=== PATIENT | female | born 1940 | race Two or more races ===

== ENCOUNTER 2017-10-08 03:24 | Inpatient (IN) | payer MEDICARE, OTHER ==
[~2017-10-08] VITALS: Ht 162.6 cm; Wt 60.8 kg
[2017-10-08] MEDS ORDERED: LEVO100T9 PO (04:38)
[2017-10-08] MEDS ORDERED: LORA-259 PO (04:38)
[2017-10-08] MEDS ORDERED: MEMA10TA PO (04:39)
--- NOTE | 2017-10-08 04:39 | NUR ---
Patient refused skin assessment and photo taken, asked to take her photo, she stated, " No "
[2017-10-08] MEDS ORDERED: POLY255P2 PO (04:41)
--- NOTE | 2017-10-08 04:41 | NUR ---
0440 AM, PATIENT ADMITTED DIRECTLY FROM [facility], ER ACCOMPANIED BY 2 MALE PARAMEDICS. PATIENT CAME TO THE UNIT AT 0440 AM. ADMITTED ON 5150 HOLD FOR GD. SHE WAS PLACED COMFORTABLY IN BED. PATIENT IS AWAKE, ALERT, KNOWS HER NAME AND TIME, NOT THE PLACE. PATIENT IS CONFUSED, UNCOOPERATIVE, ANSWER QUESTIONS SELECTIVELY. RESPIRATION EVEN, BREATHING PATTERN NON-LABORED, SHOWS NO S/S OF PAIN OR DISCOMFORT. VERIFIED ALLERGY WITH PCN, HER EYES GET SWOLLEN WHEN SHE TAKES PENICILLIN. REUSED PHOTO TAKEN AND RERUSED SKIN ASSESSMENT. SHE SAID THAT SHE HAD HER FLU SHOT 2 DAYS AGO. BELONGINGS WERE INVENTORIED AND CHECKED FOR CONTRABAND, VALUABLES PUT TO SAFE. PATIENT IS UNDER THE PSYCHIATRIC CARE OF DR. CHÁVEZ AND UNDER THE MEDICAL CARE OF DR. YBARRA. WILL CALL IN THE MORNING FOR MED RECON. WILL NOTIGY FAMILY OF HER ADMISSION TO THE UNIT. BED LOCKED AND PLACED ON LOWER POSITION. WILL CONTINUE TO MONITOR Q 15 MINS. TO MAINTAIN SAFETY
--- NOTE | 2017-10-08 04:45 | NUR ---
0445; VITAL SIGNS 120/71, 98.0, 18, 74, 98% SATURATION ON ROOM AIR.
[2017-10-08] MEDS ORDERED: MAGNESIUM HYDROXIDE 30 ML UDC PO PRN (05:00)
[2017-10-08] MEDS ORDERED: ACETAMINOPHEN 325 MG TABLET PO PRN (05:00)
[2017-10-08] MEDS ORDERED: MAG HYDROX/AL HYDROX/SIMETH 30 ML UDC PO PRN (05:00)
--- NOTE | 2017-10-08 06:27 | NUR ---
JENAE YBARRA FOR MED RECON
--- NOTE | 2017-10-08 06:38 | NUR ---
Called patient's , Mr. Feroz Chauhan to notify about patient's admission to the unit, no answer, voicemail left.
[2017-10-08 08:00] VITALS: BP 121/71
[2017-10-08] MEDS: LORAZEPAM 0.5 MG TABLET PO PRN (14:17)
--- NOTE | 2017-10-08 14:18 | NUR ---
GPS RN NOTE: PT IN THE DINNING ROOM ANXIOUS AND RESTLESS ATIVAN 0.5 MG PO PRN GIVEN WILL CONTINUE MONITORING FOR SAFETY AND BEHAVIOR Q 15 MIN
--- NOTE | 2017-10-08 15:55 | NUR ---
initial Discharge Note: Patient lives at home with her [address] [facility] [address]. dynamic balancer set up worker spoke to patient's Feroz Chauhan ([phone]) and patient's son Jesus Chauhan ([phone]) both stated that patient can return home upon discharge and stated that someone in the family would be able to pick her up. dynamic balancer set up worker will help form a safe and proper discharge.
--- NOTE | 2017-10-08 15:55 | NUR ---
Patient's Feroz Chauhan ([phone]) requested to speak to the assigned psychiatrist. SW informed Dr. Lombardi.
[2017-10-08 16:00] VITALS: BP 127/82
[2017-10-08] MEDS: MEMANTINE HCL 5 MG TABLET PO SCH ×2 (16:26→16:31)
--- NOTE | 2017-10-08 17:30 | NUR ---
GPS RN NOTE: PT IN THE DINNING ROOM REFUSED SKIN ASSESSMENT NON COOPERATIVE, ANXIOUS, RESTLESS NOTED MULTIPLE SKIN TEARS ON HER LEFT ARM PT CONTINUE REFUSING TO COVER WITH SANCHEZ, WILL CONTINUE MONITORING.
[2017-10-08 19:42] VITALS: BP 116/55
[2017-10-08] MEDS: QUETIAPINE FUMARATE 25 MG TABLET PO SCH (21:49)
[2017-10-08] MEDS: DIVALPROEX SODIUM 250 MG TABLET.DR PO SCH (21:49)
[2017-10-09 06:59] LABS: BASOPHILS % (AUTO) 0.1 % (0.0-2.0); EOSINOPHILS # (AUTO) 0.1 /CMM (0.0-0.7); HEMATOCRIT 37 % (33-45); HEMOGLOBIN 12.9 g/dL (11.5-14.8); LYMPHOCYTES # (AUTO) 2.1 /CMM (0.8-4.8); LYMPHOCYTES % (AUTO) 23.5 % (20.0-44.0); MEAN CORPUSCULAR HEMOGLOBIN 32 PG (26.0-33.0); MEAN CORPUSCULAR HGB CONC 35 g/dl (31.0-36.0); MEAN CORPUSCULAR VOLUME 92 fL (82-100); MONOCYTES # (AUTO) 0.8 /CMM (0.1-1.30); MONOCYTES % (AUTO) 8.7 % (2.0-12.0); NEUTROPHILS # (AUTO) 5.9 /CMM (1.8-8.9); NEUTROPHILS % (AUTO) 66.7 % (43.0-81.0); PLATELET COUNT (AUTO) 228 /CMM (150-450); RDW COEFFICIENT OF VARIATION 14.4 (11.5-15.0); RED BLOOD CELL COUNT(AUTO) 4.01 MIL/uL (4.0-5.2); WHITE BLOOD COUNT (AUTO) 8.9 K/uL (4.3-11.0)
[2017-10-09 07:18] LABS: CHOLESTEROL 126 mg/dL (<200); HDL CHOLESTEROL 65 mg/dL (40-60); LDL 62 mg/dL (0-99); TRIGLYCERIDES 30 mg/dL (30-150)
[2017-10-09 07:21] LABS: ALANINE AMINOTRANSFERASE 31 U/L (12-78); ALKALINE PHOSPHATASE 65 U/L (46-116); ASPARTATE AMINOTRANSFERASE 42 U/L (15-37); BILIRUBIN,TOTAL 1.1 mg/dL (0.2-1.0); CALCIUM, SERUM 8.7 mg/dL (8.5-10.1); CARBON DIOXIDE 24 mmol/L (21-32); CHLORIDE 112 mmol/L (98-107); CREATININE 0.8 mg/dL (0.6-1.3); GLUCOSE 89 mg/dL (74-106); POTASSIUM 3.5 mmol/L (3.5-5.1); SODIUM SERUM 144 mmol/L (136-145); TOTAL PROTEIN, SERUM 6.3 g/dL (6.4-8.2); UREA NITROGEN, BLOOD 24 mg/dL (7-18)
[2017-10-09] MEDS: LEVOTHYROXINE SODIUM 100 MCG TABLET PO SCH (07:30)
[2017-10-09 08:00] VITALS: BP 99/69
[2017-10-09] MEDS: MEMANTINE HCL 5 MG TABLET PO SCH ×2 (09:00→16:11)
[2017-10-09] MEDS: DIVALPROEX SODIUM 250 MG TABLET.DR PO SCH ×2 (09:00→20:54)
[2017-10-09] MEDS: QUETIAPINE FUMARATE 25 MG TABLET PO SCH ×2 (09:00→21:07)
--- NOTE | 2017-10-09 09:00 | NUR ---
GPS/RN PATIENT REFUSED ALL MORNING MEDICATION X 3, EXPLAINED RISKS AND BENEFITS, WILL CONTINUE TO ENCOURAGE TO COMPLY WITH MD REGIMEN.
[2017-10-09 16:07] VITALS: BP 110/75
[2017-10-09] MEDS: DIVALPROEX SODIUM 125 MG TABLET.DR PO SCH (16:11)
[2017-10-09 20:10] VITALS: BP 128/78
[2017-10-09] MEDS: TEMAZEPAM 7.5 MG CAPSULE PO PRN (21:12)
[2017-10-10 08:00] VITALS: BP 107/77
[2017-10-10] MEDS: LEVOTHYROXINE SODIUM 100 MCG TABLET PO SCH (08:18)
[2017-10-10] MEDS: MEMANTINE HCL 5 MG TABLET PO SCH ×2 (08:18→17:12)
[2017-10-10] MEDS: DIVALPROEX SODIUM 250 MG TABLET.DR PO SCH ×2 (08:18→20:22)
[2017-10-10] MEDS: QUETIAPINE FUMARATE 25 MG TABLET PO SCH ×2 (08:18→21:21)
[2017-10-10 16:09] VITALS: BP 129/78
[2017-10-10] MEDS: DIVALPROEX SODIUM 125 MG TABLET.DR PO SCH (17:12)
[2017-10-10 19:55] VITALS: BP 118/57
[2017-10-10] MEDS: TEMAZEPAM 7.5 MG CAPSULE PO PRN (21:45)
[2017-10-11] MEDS: LORAZEPAM 0.5 MG TABLET PO PRN (02:23)
--- NOTE | 2017-10-11 02:23 | NUR ---
GPS RN NOTES: PATIENT VERY ANXIOUS, RESTLESS. VSS. ADMINISTERED ATIVAN 0.5MG PO ORDERED. WILL CONTINUE TO MONITOR [id number] FOR SAFETY AND BEHAVIOR.
--- NOTE | 2017-10-11 02:41 | NUR ---
GPS RN NOTES: SKIN BODY REASSESSMENT DONE.
[2017-10-11 08:00] VITALS: BP 107/69
[2017-10-11] MEDS: LEVOTHYROXINE SODIUM 100 MCG TABLET PO SCH (08:39)
[2017-10-11] MEDS: QUETIAPINE FUMARATE 25 MG TABLET PO SCH (09:30)
[2017-10-11] MEDS: DIVALPROEX SODIUM 250 MG TABLET.DR PO SCH (09:30)
[2017-10-11] MEDS: MEMANTINE HCL 5 MG TABLET PO SCH (09:30)
--- NOTE | 2017-10-11 10:03 | NUR ---
DR. FOX GAVE AN ORDER TO D/C HOME AND D/C HOME AND TO FOLLOW UP WITH PSYCH AND MEDICAL DOCTORS.
--- NOTE | 2017-10-11 10:55 | NUR ---
GPS/RN-NOTES PATIENT DISCHARGE TO HOME TODAY. DR. FOX (COVERING FOR DR. CHÁVEZ) AND SOD FARMER SEVEN AWARE AND AGREED OF PATIENT DISCHARGE WITH ORDERS. PATIENT DID NOT VERBALIZE SI/HI,DENIES VISUAL/AUDITORY HALLUCINATIONS AT THE TIME OF DISCHARGE. STRIP CUTTER BY SHANNON ALEGRIA AND SON VIA PRIVATE CAR. ALL DISCHARGE MEDICATIONS WAS REVIEWED WITH THE PATIENT WITH UNDERSTANDING, RX AND DISCHARGE PAPERS WAS GIVEN TO THE . PATIENT LEFT THE UNIT IN STABLE CONDITION,AMBULATORY WITH ALL HER BELONGINGS.ASSISTED BY ONE UNDERGROUND CONDUIT INSTALLER STAFF INTO THE LOBBY FOR SAFETY.
--- NOTE | 2017-10-11 15:10 | NUR ---
Discharge Note: Patient was discharged home [address] [facility] [address]. Patient's Feroz Chauhan ([phone]) was notified and picked her up via private vehicle. Patient appeared calm upon discharge. Patient denied any suicidal and homicidal ideations upon discharge. Patient will follow-up with her staker surveying Dr. Herring ([phone]) and will also follow-up with her psychiatrist Dr. Roosevelt Gutierrez ([phone]) [address] [facility] [address], [facility] [address]. For smoking cessation, patient was referred to [facility] at [address], [address] [place] [address] [facility]. ([phone]) for 's meeting scheduled 10/11/16 at 7:00PM. Facilitated info to IDT team who are in agreement with discharge arrangement. The multidisciplinary exitcare form was done, printed, signed, and given to the patient.
== END 2017-10-11 10:55 | disposition home or self-care (01) | DRG 885 ==
LOC: GPS 04:23
PROVIDERS: ADMIT Psychiatry & Neurology Psychiatry; ATTEND Internal Medicine
DX: F29 Unspecified psychosis not due to a substance or known physiological condition (principal); F03.91 Unspecified dementia, unspecified severity, with behavioral disturbance; E03.9 Hypothyroidism, unspecified; F32.9 Major depressive disorder, single episode, unspecified; F41.9 Anxiety disorder, unspecified; Z73.6 Limitation of activities due to disability
CPT/HCPCS: 36415; 80053-TC; 80061-TC; 85025-TC; 87081-TC

== ENCOUNTER 2020-07-21 15:50 | Inpatient (IN) | payer MEDICARE, OTHER ==
[~2020-07-21] VITALS: Ht 175.3 cm; Wt 71.7 kg
[~2020-07-21 15:50] MED LIST: LEVO100T9 PO; LORA-259 PO; MEMA10TA PO; POLY255P19 PO
--- NOTE | 2020-07-21 16:13 | NUR ---
DR GRUBBS AT BEDSIDE FOR EVAL.
--- NOTE | 2020-07-21 16:28 | NUR ---
AMBULATED TO RESTROOM. UNABLE TO PROVIDE URINE SAMPLE AT THIS TIME.
--- NOTE | 2020-07-21 16:32 | NUR ---
PARKING METER ATTENDANT AT BEDSIDE FOR BLOOD DRAW.
[2020-07-21 16:53] LABS: BASOPHILS # (AUTO) 0.1 /CMM (0.0-0.2); BASOPHILS % (AUTO) 2.1 % (0.0-2.0); EOSINOPHILS % (AUTO) 1.4 % (0.0-6.0); HEMATOCRIT 43 % (33-45); LYMPHOCYTES # (AUTO) 1.4 /CMM (0.8-4.8); LYMPHOCYTES % (AUTO) 20.4 % (20.0-44.0); MEAN CORPUSCULAR HGB CONC 33 g/dl (31.0-36.0); MEAN CORPUSCULAR VOLUME 94 fL (82-100); MONOCYTES # (AUTO) 0.8 /CMM (0.1-1.30); MONOCYTES % (AUTO) 11.1 % (2.0-12.0); NEUTROPHILS # (AUTO) 4.4 /CMM (1.8-8.9); PLATELET COUNT (AUTO) 189 /CMM (150-450); RED BLOOD CELL COUNT(AUTO) 4.57 MIL/uL (4.0-5.2); WHITE BLOOD COUNT (AUTO) 6.7 K/uL (4.3-11.0)
[2020-07-21] MEDS ORDERED: CITA20TA16 PO (17:00)
[2020-07-21] MEDS ORDERED: DIVA125C2 MT (17:00)
[2020-07-21] MEDS ORDERED: RISP1TAB97 PO (17:00)
[2020-07-21] MEDS ORDERED: FLUT1BLS6 INH (17:02)
[2020-07-21] MEDS ORDERED: QUET100T PO (17:02)
[2020-07-21] MEDS ORDERED: OXCA300T15 PO (17:02)
[2020-07-21 17:03] LABS: CALCIUM, SERUM 9.4 mg/dL (8.5-10.1); CARBON DIOXIDE 26 mmol/L (21-32); CHLORIDE 107 mmol/L (98-107); GLUCOSE 98 mg/dL (74-106); POTASSIUM 3.9 mmol/L (3.5-5.1); SODIUM SERUM 143 mmol/L (136-145); UREA NITROGEN, BLOOD 27 mg/dL (7-18)
[2020-07-21 17:08] LABS: ALANINE AMINOTRANSFERASE 14 U/L (12-78); ALBUMIN 3.4 g/dL (3.4-5.0); ALCOHOL, BLOOD < 3 mg/dL (0-0); ALKALINE PHOSPHATASE 104 U/L (46-116); ASPARTATE AMINOTRANSFERASE 18 U/L (15-37); BILIRUBIN,DIRECT 0.1 mg/dL (0.0-0.2); BILIRUBIN,TOTAL 0.2 mg/dL (0.2-1.0); TOTAL PROTEIN, SERUM 6.9 g/dL (6.4-8.2)
[2020-07-21 17:10] LABS: ACETAMINOPHEN 0 ug/ml (10-30)
--- NOTE | 2020-07-21 17:11 | NUR ---
COVID NEGATIVE PER LAB
--- NOTE | 2020-07-21 18:18 | NUR ---
GOT BED 212-B
--- NOTE | 2020-07-21 18:25 | NUR ---
REPORT GIVEN TO CAYETANO FELIX [facility].
[2020-07-21 19:57] VITALS: BP 116/70
[2020-07-21] MEDS ORDERED: MAG HYDROX/AL HYDROX/SIMETH 30 ML UDC PO PRN (20:00)
[2020-07-21] MEDS ORDERED: MAGNESIUM HYDROXIDE 30 ML UDC PO PRN (20:00)
[2020-07-21] MEDS ORDERED: ACETAMINOPHEN 325 MG TABLET PO PRN (20:00)
[2020-07-21] MEDS ORDERED: BLOOD SUGAR DIAGNOSTIC 1 EACH STRIP IN ONE (20:00)
[2020-07-21 20:16] VITALS: BP 128/77
[2020-07-21] MEDS: LORAZEPAM 0.5 MG TABLET PO PRN (20:30)
--- NOTE | 2020-07-21 20:41 | NUR ---
GPS RN NOTE: ADMISSION NOTE PT ARRIVED ON THE UNIT @ 1920, PT IS IS A 80 Y/O FEMALE COMING FROM HOME, PT IS A/O X1, VERY CONFUSED, DISORIENTED, DISORGANIZED, LABILE MOOD, UNCOOPERATIVE, PT HAS DEMENTIA AND NEEDS CONSTANT REDIRECTING. PER HOLD PT IS ON A 5150 DUE TO GD AND DTS, PT WAS NOT COMPLIANT WITH MEDICATION, UNABLE TO CARE FOR SELF, UNABLE TO CONTRACT FOR SAFETY AND A HARM TO SELF AND OTHERS. UPON ARRIVAL ON THE UNIT PT REFUSED SKIN ASSESSMENT AND TO SIGN CONSENT FORM, PT NEEDED TOP BE REDIRECTED FOR REASON OF HOSPITALIZATION. ONCE REDIRECTED PT UNDERSTOOD AND SHORTLY AFTER BECAME CONFUSED. I SPOKE TO THE PTS AND SON, THE FAMILY SAID THE PT HAS BEEN INCREASINGLY AGITATED THE LAST FEW WEEKS AND HAS REFUSING CARE, PT IS SELECTIVE WITH MEDICATION BUT DOES NOT TAKE THE MEDICATION MAJORITY OF THE TIME. PT REFUSED SKIN ASSESSMENT, BUT IT WAS CLEAR TO SEE PT HAD DRY SKIN, DISHEVELED AND POOR HYGIENE, ENCOURAGED SHOWER BUT PT REFUSED. PT FAMILY STATED THAT THE PT RECEIVED THE FLU AND PNA VACCINE BEFORE, HAS BEEN REFUSING HER MEDICATION FOR COPD. PT HAS HISTORY OF CIG SMOKING FOR 50 YEARS BUT QUIT APPROX. 2 YEARS AGO. PT ADVISED OF HOLD, PT ADVISMENT GIVEN TO PT. PT WILL BE UNDER THE PSYCHIATRIC CARE OD AND MEDICAL CARE OF DR. AMEZCUA. WILL CONTINUE TO MONITOR Q15MIN FOR SAFETY AND BEHAVIOR.
--- NOTE | 2020-07-21 20:47 | NUR ---
GPS RN NOTE: ANXIETY PT ANXIOUS, RESTLESS, ADMIN PRN ATIVAN @ 2029, WILL REASSESS AND CONTINUE TO MONITOR Q15MIN FOR SAFETY AND BEHAVIOR.
--- NOTE | 2020-07-21 20:50 | NUR ---
GPS RN NOTE SURVEILLANCE SYSTEM MONITOR DR. PATRICIA NOTIFIED OF PTS ARRIVAL ON UNIT AND REQUESTED FOR MED RECON.
[2020-07-21] MEDS: TEMAZEPAM 7.5 MG CAPSULE PO PRN (21:57)
--- NOTE | 2020-07-21 21:59 | NUR ---
GPS RN NOTE: INSOMNIA PT REQUESTED SLEEPING PILL TO HELP HER SLEEP, VSS AT THIS TIME, ADMIN RESTORIL 7.5MG PRN WILL CONTINUE TO MONITOR Q15MIN FOR SAFETY AND BEHAVIOR.
[2020-07-22] MEDS: LORAZEPAM 0.5 MG TABLET PO PRN ×3 (03:21→14:50)
--- NOTE | 2020-07-22 03:23 | NUR ---
GPS RN NOTE: ANXIETY PT WAS RESTLESS, ANXIOUS, OFFERED ANOTHER ATIVAN PT ACCEPTED, ADMIN PRN ATIVAN 0.5MG @ 0321, WILL CONTINUE TO MONITOR Q15MIN FOR SAFETY AND BEHAVIOR.
[2020-07-22 07:37] LABS: ALBUMIN 3.6 g/dL (3.4-5.0); BILIRUBIN,TOTAL 0.4 mg/dL (0.2-1.0); CALCIUM, SERUM 9.4 mg/dL (8.5-10.1); CREATININE 0.8 mg/dL (0.6-1.3); POTASSIUM 3.5 mmol/L (3.5-5.1); TOTAL PROTEIN, SERUM 7.1 g/dL (6.4-8.2)
[2020-07-22 07:47] LABS: THYROID STIMULATING HORMONE 1.799 uIU/mL (0.358-3.74)
--- NOTE | 2020-07-22 07:52 | NUR ---
rn notes administered Ativan 0.5 mg po prn for anxiety, paranoia, labile, hard to follow direction.
[2020-07-22] MEDS: MEMANTINE HCL 5 MG TABLET PO SCH ×2 (08:05→16:51)
[2020-07-22] MEDS: NICOTINE PATCH (14MG) 14 MG PATCH.TD24 TD SCH (08:06)
[2020-07-22 08:24] VITALS: BP 121/98
[2020-07-22] MEDS ORDERED: OXCARBAZEPINE 150 MG TABLET PO SCH (09:00)
--- NOTE | 2020-07-22 10:05 | NUR ---
Family Contact: SW called the pts , Feroz ([phone]), and discussed the pts treatment. Pts stated that he wants the pt back to their home and that they have two doctors who are involved in the pts care. Pts stated that they have a caregiver who arrives 5 days a week for 8 hours and they have an adult son that lives with them. Pts believes that the pt needs to be in her home environment once she is discharged from the hospital.
--- NOTE | 2020-07-22 10:23 | NUR ---
Initial Discharge Plan: Pt currently resides at her home located at [address] [place] [address] with her Feroz ([phone]) and an adult son. Per , he would like the pt to return home. ELOISA will work with the pt and the MD regarding appropriate discharge planning. SW will form a safe and proper discharge.
[2020-07-22] MEDS: FLUTICASONE/VILANTEROL 1 EACH BLST.W.DEV IH SCH (13:00)
--- NOTE | 2020-07-22 14:50 | NUR ---
rn notes administered ativan 0.5 mg po prn for anxiety, yelling, uncooperative. v/s taken stable. will monitoring.
[2020-07-22 16:41] VITALS: BP 106/68
[2020-07-22] MEDS: risperiDONE 0.25 MG TABLET PO SCH (19:37)
[2020-07-22 20:00] VITALS: BP 131/97
[2020-07-22] MEDS: QUETIAPINE FUMARATE 100 MG TABLET PO SCH (21:12)
[2020-07-22] MEDS: DIVALPROEX SODIUM 125 MG CAP.SPRINK PO SCH (21:12)
[2020-07-23] MEDS ORDERED: QUETIAPINE FUMARATE 25 MG TABLET PO SCH (09:00)
--- NOTE | 2020-07-23 09:00 | NUR ---
RN NOTE- PT CONFUSED DISORGANIZED ANXIOUS AT TIMES. PO INTAKE POOR, MED COMPLIANT HOWEVER, WARY AND GUARDED, PT DIRTY AND DISHEVELED. REFUSES SHOWER. WANTS TO SLEEP. MONITOR FOR SAFETY
[2020-07-23] MEDS: CITALOPRAM HYDROBROMIDE 20 MG TABLET PO SCH (09:13)
[2020-07-23] MEDS: FLUTICASONE/VILANTEROL 1 EACH BLST.W.DEV IH SCH (09:13)
[2020-07-23] MEDS: NICOTINE PATCH (14MG) 14 MG PATCH.TD24 TD SCH (09:13)
[2020-07-23] MEDS: risperiDONE 0.25 MG TABLET PO SCH ×2 (09:14→16:45)
[2020-07-23] MEDS: DIVALPROEX SODIUM 125 MG CAP.SPRINK PO SCH ×2 (09:14→21:13)
[2020-07-23] MEDS: MEMANTINE HCL 5 MG TABLET PO SCH ×2 (09:14→16:46)
[2020-07-23 14:57] VITALS: BP 121/72
[2020-07-23 16:00] VITALS: BP 121/72
[2020-07-23] MEDS: LORAZEPAM 0.5 MG TABLET PO PRN (16:42)
--- NOTE | 2020-07-23 16:42 | NUR ---
RN NOTE- PT W ANXIETY AGITATION AND RESTLESSNESS. ATIVAN 0.5 MG GIVEN
--- NOTE | 2020-07-23 17:14 | NUR ---
RN NOTE- PT W INCREASING AGITATION THIS AFTERNOON. ATTEMPTED TO SHOWER PT W STAFF ASSIST BUT PT BECAME AGGRESSIVE. PT IN ROOM AT PRESENT RESTING QUIETLY AND IT WAS NOTED THAT SHE HAD DEFECATED ON FLOOR IN ROOM. CLEANED UP AND CALLED EVS.
[2020-07-23] MEDS: QUETIAPINE FUMARATE 25 MG TABLET PO SCH (18:42)
[2020-07-23 21:08] VITALS: BP 105/55
[2020-07-23] MEDS: QUETIAPINE FUMARATE 100 MG TABLET PO SCH (21:13)
[2020-07-24] MEDS: TEMAZEPAM 7.5 MG CAPSULE PO PRN (00:57)
--- NOTE | 2020-07-24 00:59 | NUR ---
GPS RN NOTE: INSOMNIA PT. UNABLE TO SLEEP. ADMINISTERED RESTORIL 7.5 MG PO PRN ORDERED. WILL CONTINUE TO MONITOR
[2020-07-24 08:00] VITALS: BP 131/84
[2020-07-24] MEDS: NICOTINE PATCH (14MG) 14 MG PATCH.TD24 TD SCH (08:11)
[2020-07-24] MEDS: MEMANTINE HCL 5 MG TABLET PO SCH ×2 (08:11→17:15)
[2020-07-24] MEDS: QUETIAPINE FUMARATE 25 MG TABLET PO SCH ×2 (08:11→17:14)
[2020-07-24] MEDS: DIVALPROEX SODIUM 125 MG CAP.SPRINK PO SCH ×2 (08:11→21:32)
[2020-07-24] MEDS: CITALOPRAM HYDROBROMIDE 20 MG TABLET PO SCH (08:11)
[2020-07-24] MEDS: FLUTICASONE/VILANTEROL 1 EACH BLST.W.DEV IH SCH (08:12)
--- NOTE | 2020-07-24 19:30 | NUR ---
GPS RN NOTE, RECEIVED PATIENT AWAKE AND IN BED, NO S/S OR COMPLAINTS OF PAIN AT THIS TIME. PATIENT IS DISPLAYING NO S/S OF APPARENT DISTRESS AT THIS TIME. PATIENT BREATHING IS UNLABORED WITH EQUAL RISE AND FALL OF THE CHEST. PATIENT IS ALERT AND ORIENTED X 1 ON ROOM AIR WITH A SPO2 99%. PATIENT IS COMPLIANT WITH MEDICATIONS, CONFUSED, HYPERVERBAL, ANXIOUS AT TIMES, EASILY IRRITABLE, AND UNCOOPERATIVE. PATIENT DENIES SUICIDAL AND HOMICIDAL IDEATIONS AT THIS TIME. PATIENT ASSISTED WITH TURNING AND REPOSITIONING Q2HR AND PRN FOR COMFORT AND CIRCULATION. PATIENT HAS NO NEEDS AT THIS TIME. PATIENT EDUCATED ON THE USE OF THE CALL CARD. PATIENT BED SIDE RAILS UP X 2 FOR SAFETY. PATIENT BED IS LOCKED, LOW, WITH BED ALARM ON. WILL CONTINUE TO MONITOR THIS PATIENT Q15 MINUTES WITH THE HELP OF STAFF TO MAINTAIN SAFETY.
[2020-07-24 20:01] VITALS: BP 138/91
[2020-07-24] MEDS: QUETIAPINE FUMARATE 100 MG TABLET PO SCH (21:32)
[2020-07-25] MEDS: NICOTINE PATCH (14MG) 14 MG PATCH.TD24 TD SCH (08:22)
[2020-07-25] MEDS: DIVALPROEX SODIUM 125 MG CAP.SPRINK PO SCH ×2 (08:22→22:08)
[2020-07-25] MEDS: QUETIAPINE FUMARATE 25 MG TABLET PO SCH ×2 (08:23→17:00)
[2020-07-25] MEDS: MEMANTINE HCL 5 MG TABLET PO SCH ×2 (08:23→17:00)
[2020-07-25] MEDS: CITALOPRAM HYDROBROMIDE 20 MG TABLET PO SCH (08:23)
[2020-07-25] MEDS: FLUTICASONE/VILANTEROL 1 EACH BLST.W.DEV IH SCH (08:31)
[2020-07-25 10:03] LABS: BILIRUBIN,URINE NEGATIVE (NEGATIVE); COLOR,URINE YELLOW (YELLOW); LEUKOCYTE ESTERASE ,URINE MODERATE (NEGATIVE); NITRITE, URINE NEGATIVE (NEGATIVE); PH,URINE 6.5 (5.0-8.0); PROTEIN,URINE NEGATIVE (NEGATIVE); UGLUCOSE NEGATIVE (NEGATIVE)
[2020-07-25 10:53] LABS: BACTERIA,URINE Moderate /HPF (None Seen); CALCIUM OXALATE CRYSTALS,UR Few /HPF (None Seen); RBC,URINE 0-2 /HPF (0-2); SQUAMOUS EPITHELIAL CELL,UR Moderate /HPF (None Seen)
[2020-07-25 10:54] LABS: WBC,URINE 51-80 /HPF (0-3)
--- NOTE | 2020-07-25 12:04 | NUR ---
GPS RN NOTES: PATIENT IN THE TY, URINE LAB TEST REPORTED TO MENDOZA RAMIREZ OF [facility]. MESSAGED ACKNOWLEDGED. AWAITING FOR FURTHER ORDERS. WILL CONTINUE TO MONITOR.
[2020-07-25] MEDS: LORAZEPAM 0.5 MG TABLET PO PRN (14:23)
--- NOTE | 2020-07-25 14:23 | NUR ---
RN NOTE- PT PUSHING ON DOORS, WANDERING INTO PTS ROOMS ATTEMPTING TO FLEE UNIT. ATIVAN 0.5 MG GIVEN
[2020-07-25 15:30] VITALS: BP 85/62
--- NOTE | 2020-07-25 15:46 | NUR ---
GPS RN NOTES: PATIENT'S BP 85/62 HR-95 O2 SAT-95%.TEMP-97.6, NO PAIN NO RESPIRATORY DISTRESS, ASYMPTOMATIC. MENDOZA RAMIREZ NP OF [facility] MADE AWARE OF PATIENT'S BP. HE RESPONDED TO KEEP MONITORING THE PATIENT.
[2020-07-25 17:24] VITALS: BP 98/67
--- NOTE | 2020-07-25 17:25 | NUR ---
RN NOTE- BP STILL RUNNING LOW. BP- 98/57. HOLDING SEROQUEL / NAMENDA
[2020-07-25 20:00] VITALS: BP 110/57
[2020-07-25 20:36] VITALS: BP 110/57
[2020-07-25 22:04] VITALS: BP 130/76
[2020-07-25] MEDS: QUETIAPINE FUMARATE 100 MG TABLET PO SCH (22:08)
--- NOTE | 2020-07-25 22:09 | NUR ---
GPS RN NOTE PATIENT'S VITALS ARE 130/76, 70, 18, 97.5, 94% @ RA. SCHEDULED DEPAKOTE & SEROQUEL ADMINISTERED. SNACK & PO FLUIDS GIVEN & TOLERATED WELL. WILL CONTINUE TO MONITOR THE PATIENT FOR ANY CHANGES
--- NOTE | 2020-07-25 22:30 | NUR ---
GPS RN NOTE: REFUSED SKIN ASSESSMENT PATIENT REFUSED SKIN ASSESSMENT X3 AT THIS TIME, EASILY AGITATED, PARANOID, ANXIOUS, BOTH ARMS NOTED WITH SKIN DISCOLORATION BUT PATIENT REFUSED FULL BODY SKIN ASSESSMENT & PICTURES. UNCOOPERATIVE AT THIS TIME. WILL CONTINUE TO MONITOR.
[2020-07-26 08:00] VITALS: BP 131/80
[2020-07-26] MEDS: MEMANTINE HCL 5 MG TABLET PO SCH ×2 (09:25→16:56)
[2020-07-26] MEDS: DIVALPROEX SODIUM 125 MG CAP.SPRINK PO SCH ×2 (09:25→21:03)
[2020-07-26] MEDS: NICOTINE PATCH (14MG) 14 MG PATCH.TD24 TD SCH (09:26)
[2020-07-26] MEDS: QUETIAPINE FUMARATE 25 MG TABLET PO SCH ×2 (09:26→16:56)
[2020-07-26] MEDS: CITALOPRAM HYDROBROMIDE 20 MG TABLET PO SCH (09:26)
[2020-07-26] MEDS: FLUTICASONE/VILANTEROL 1 EACH BLST.W.DEV IH SCH (09:28)
--- NOTE | 2020-07-26 12:03 | NUR ---
Family Contact: ELOISA called the pts , Feroz ([phone]), after receiving a voicemail that he would like a call from the SW. SW provided him with updates regarding the pts care such as her sleeping hours and her current methods of taking her medications and her behaviors. ELOISA stated that as soon as she has a discharge date for him she will inform him.
[2020-07-26 18:16] VITALS: BP 106/82
[2020-07-26] MEDS: NITROFURANTOIN/NITROFURAN MAC 100 MG CAPSULE PO SCH ×2 (20:27→21:03)
--- NOTE | 2020-07-26 20:30 | NUR ---
GPS RN NOTES: NOTIFIED MARIEELNA PATRICIA NP OF PATIENT'S URINE RESULTS. SHE GAVE ORDERS TO START PATIENT ON CIPRO 500 MG BID X7 DAYS, UPON VERIFICATION PROCESS WITH PHARMACY THEY CHANGED THE SAID MEDICATION TO MACROBID TAB 100 MG PO BID X 10 DOSES. ORDER NOTED AND CARRIED. WILL CONTINUE TO MONITOR PATIENT.
[2020-07-26 20:38] VITALS: BP 120/53
[2020-07-26] MEDS ORDERED: CIPROFLOXACIN HCL 250 MG TABLET PO SCH (21:00)
[2020-07-26] MEDS: QUETIAPINE FUMARATE 100 MG TABLET PO SCH (21:03)
[2020-07-27] MEDS: DIVALPROEX SODIUM 125 MG CAP.SPRINK PO SCH ×2 (08:06→21:00)
[2020-07-27] MEDS: FLUTICASONE/VILANTEROL 1 EACH BLST.W.DEV IH SCH (08:06)
[2020-07-27] MEDS: CITALOPRAM HYDROBROMIDE 20 MG TABLET PO SCH (08:06)
[2020-07-27] MEDS: MEMANTINE HCL 5 MG TABLET PO SCH ×2 (08:06→17:05)
[2020-07-27] MEDS: QUETIAPINE FUMARATE 25 MG TABLET PO SCH ×2 (08:07→17:05)
[2020-07-27] MEDS: NICOTINE PATCH (14MG) 14 MG PATCH.TD24 TD SCH (08:07)
[2020-07-27] MEDS: NITROFURANTOIN/NITROFURAN MAC 100 MG CAPSULE PO SCH ×2 (08:07→21:00)
[2020-07-27 08:25] VITALS: BP 133/75
--- NOTE | 2020-07-27 09:00 | NUR ---
RN NOTE- PT CALMER TODAY MORE DIRECTABLE LESS LABILE, PO INTAKE FAIR WITHDRAWN BEING TX FOR UTI W MACROBID AT PRESENT. WILL ATTEMPT TO SHOWER PT AGAIN TODAY
[2020-07-27] MEDS: LORAZEPAM 0.5 MG TABLET PO PRN (15:17)
--- NOTE | 2020-07-27 15:20 | NUR ---
RN NOTE- ANXIETY/ PT ANXIOUS YELLING SLAPPING TRAY AND TABLES. ATIVAN 0.5 MG GIVEN
[2020-07-27 16:08] VITALS: BP 103/69
--- NOTE | 2020-07-27 16:25 | NUR ---
RN NOTE- ATIVAN EFFECTIVE. PT CALM DIRECTABLE AT PRESENT
[2020-07-27 20:23] VITALS: BP 95/59
[2020-07-27] MEDS: QUETIAPINE FUMARATE 100 MG TABLET PO SCH (21:00)
[2020-07-28 08:00] VITALS: BP 120/73
[2020-07-28] MEDS: FLUTICASONE/VILANTEROL 1 EACH BLST.W.DEV IH SCH (09:00)
[2020-07-28] MEDS: QUETIAPINE FUMARATE 25 MG TABLET PO SCH ×2 (09:55→17:15)
[2020-07-28] MEDS: MEMANTINE HCL 5 MG TABLET PO SCH ×2 (09:56→17:15)
[2020-07-28] MEDS: NICOTINE PATCH (14MG) 14 MG PATCH.TD24 TD SCH (09:56)
[2020-07-28] MEDS: CITALOPRAM HYDROBROMIDE 20 MG TABLET PO SCH (09:56)
[2020-07-28] MEDS: NITROFURANTOIN/NITROFURAN MAC 100 MG CAPSULE PO SCH ×2 (09:56→21:09)
[2020-07-28] MEDS: DIVALPROEX SODIUM 125 MG CAP.SPRINK PO SCH ×2 (09:56→21:09)
--- NOTE | 2020-07-28 10:03 | NUR ---
Individual Intervention with the pt: SW met with the pt at bedside and informed her that the pt is going to be discharged back to her home on Sunday. Pt appeared to be in a confused and disorganized state. SW deemed that the pt is currently inappropriate for individual therapy.
--- NOTE | 2020-07-28 10:13 | NUR ---
Family Contact: ELOISA called the pts , Feroz ([phone]), and informed him that the pt will be discharged on Sunday and he stated that he would poultry picking machine tender the pt around 11am.
--- NOTE | 2020-07-28 10:29 | NUR ---
PC Hearing: Pts [id number] hold was upheld for grave disability.
[2020-07-28 17:01] VITALS: BP 100/65
[2020-07-28 20:35] VITALS: BP 119/72
[2020-07-28] MEDS: QUETIAPINE FUMARATE 100 MG TABLET PO SCH (21:09)
[2020-07-29 08:00] VITALS: BP 106/71
[2020-07-29] MEDS: FLUTICASONE/VILANTEROL 1 EACH BLST.W.DEV IH SCH (08:22)
[2020-07-29] MEDS: NICOTINE PATCH (14MG) 14 MG PATCH.TD24 TD SCH (08:23)
[2020-07-29] MEDS: MEMANTINE HCL 5 MG TABLET PO SCH ×6 (08:23→17:37)
[2020-07-29] MEDS: DIVALPROEX SODIUM 125 MG CAP.SPRINK PO SCH ×3 (08:23→21:07)
[2020-07-29] MEDS: QUETIAPINE FUMARATE 25 MG TABLET PO SCH ×3 (08:23→17:19)
[2020-07-29] MEDS: CITALOPRAM HYDROBROMIDE 20 MG TABLET PO SCH ×2 (08:23→10:00)
[2020-07-29] MEDS: NITROFURANTOIN/NITROFURAN MAC 100 MG CAPSULE PO SCH ×2 (08:23→10:00)
--- NOTE | 2020-07-29 10:00 | NUR ---
RN-CO: PT REMAINS ANGRY, WHEN APPROACH. SHE SLAPPED MY ARMS WHEN I OFFERED HER AM MEDICATIONS AND SAID " I DON'T NEED ANY MEDICATIONS!"
--- NOTE | 2020-07-29 13:55 | NUR ---
RN-CO: PT IS ANGRY, RESPONDING TO INTERNAL STIMULI. I OFFERED HER ATIVAN BUT SHE YELLED " GET AWAY FROM ME!" AND REFUSED.
--- NOTE | 2020-07-29 14:25 | NUR ---
Family Contact: SW called the pts , Feroz ([phone]), and confirmed that the pt will be discharged on Sunday with him.
[2020-07-29] MEDS: LORAZEPAM 0.5 MG TABLET PO PRN (15:35)
--- NOTE | 2020-07-29 15:35 | NUR ---
RN-CO: ATIVAN GIVEN FOR AGITATION, M/B YELLING AND SCREAMING.
[2020-07-29 16:00] VITALS: BP 123/84
--- NOTE | 2020-07-29 17:26 | NUR ---
RN-CO: PATIENT REFUSED 9 AM AND 5 PM NAMENDA.
--- NOTE | 2020-07-29 17:37 | NUR ---
RN-CO: PATIENT WAS ABLE TO CONVINCE TO TAKE HER NAMENDA AT 1738.
--- NOTE | 2020-07-29 18:14 | NUR ---
RN-CO: PATIENT REFUSED TO STAND UP AND WALK WITH THE STAFF TO EXERCISES.
--- NOTE | 2020-07-29 19:30 | NUR ---
GPS RN NOTE, RECEIVED PATIENT AWAKE AND IN BED, NO S/S OR COMPLAINTS OF PAIN AT THIS TIME. PATIENT IS DISPLAYING NO S/S OF APPARENT DISTRESS AT THIS TIME. PATIENT BREATHING IS UNLABORED WITH EQUAL RISE AND FALL OF THE CHEST. PATIENT IS ALERT AND ORIENTED X 1 ON ROOM AIR WITH A SPO2 95%. PATIENT IS NOT COMPLIANT WITH MEDICATIONS, CONFUSED, RESPONDING TO INTERNAL STIMULI, ANXIOUS AT TIMES, EASILY IRRITABLE, COMBATIVE WITH CARE, AND UNCOOPERATIVE. PATIENT DENIES SUICIDAL AND HOMICIDAL IDEATIONS AT THIS TIME. PATIENT ASSISTED WITH TURNING AND REPOSITIONING Q2HR AND PRN FOR COMFORT AND CIRCULATION. PATIENT HAS NO NEEDS AT THIS TIME. PATIENT EDUCATED ON THE USE OF THE CALL CARD. PATIENT BED SIDE RAILS UP X 2 FOR SAFETY. PATIENT BED IS LOCKED, LOW, WITH BED ALARM ON. WILL CONTINUE TO MONITOR THIS PATIENT Q15 MINUTES WITH THE HELP OF STAFF TO MAINTAIN SAFETY.
[2020-07-29 19:36] VITALS: BP 100/69
[2020-07-29] MEDS: QUETIAPINE FUMARATE 100 MG TABLET PO SCH (21:07)
[2020-07-30 08:00] VITALS: BP 101/54
[2020-07-30] MEDS: NITROFURANTOIN/NITROFURAN MAC 100 MG CAPSULE PO SCH ×2 (08:42→21:09)
[2020-07-30] MEDS: DIVALPROEX SODIUM 125 MG CAP.SPRINK PO SCH ×2 (08:42→21:10)
[2020-07-30] MEDS: QUETIAPINE FUMARATE 25 MG TABLET PO SCH ×2 (08:42→16:01)
[2020-07-30] MEDS: NICOTINE PATCH (14MG) 14 MG PATCH.TD24 TD SCH (08:42)
[2020-07-30] MEDS: MEMANTINE HCL 5 MG TABLET PO SCH ×2 (08:42→16:01)
[2020-07-30] MEDS: CITALOPRAM HYDROBROMIDE 20 MG TABLET PO SCH (08:42)
[2020-07-30] MEDS: FLUTICASONE/VILANTEROL 1 EACH BLST.W.DEV IH SCH (08:42)
--- NOTE | 2020-07-30 09:00 | NUR ---
RN NOTE- PT WITHDRAWN ISOLATIVE CONFUSED, DISORGANIZED PO INTAKE POOR THIS MORNING, MED COMPLIANT AT PRESENT
[2020-07-30 16:00] VITALS: BP 92/67
[2020-07-30] MEDS: QUETIAPINE FUMARATE 100 MG TABLET PO SCH (21:10)
[2020-07-31 08:00] VITALS: BP 105/66
[2020-07-31] MEDS: CITALOPRAM HYDROBROMIDE 20 MG TABLET PO SCH (08:13)
[2020-07-31] MEDS: DIVALPROEX SODIUM 125 MG CAP.SPRINK PO SCH ×3 (08:13→21:51)
[2020-07-31] MEDS: QUETIAPINE FUMARATE 25 MG TABLET PO SCH ×2 (08:13→16:08)
[2020-07-31] MEDS: NITROFURANTOIN/NITROFURAN MAC 100 MG CAPSULE PO SCH (08:13)
[2020-07-31] MEDS: MEMANTINE HCL 5 MG TABLET PO SCH ×2 (08:13→16:08)
[2020-07-31] MEDS: NICOTINE PATCH (14MG) 14 MG PATCH.TD24 TD SCH (08:13)
[2020-07-31] MEDS: FLUTICASONE/VILANTEROL 1 EACH BLST.W.DEV IH SCH (08:18)
--- NOTE | 2020-07-31 14:59 | NUR ---
RN-CO: Patient is combative to care. She was kicking and cursing the staff while we are changing her diaper. She is verbally abusive and screaming "ugly and fat".
[2020-07-31 16:00] VITALS: BP 140/98
--- NOTE | 2020-07-31 19:30 | NUR ---
GPS RN NOTE, RECEIVED PATIENT AWAKE AND IN BED, NO S/S OR COMPLAINTS OF PAIN AT THIS TIME. PATIENT IS DISPLAYING NO S/S OF APPARENT DISTRESS AT THIS TIME. PATIENT BREATHING IS UNLABORED WITH EQUAL RISE AND FALL OF THE CHEST. PATIENT IS ALERT AND ORIENTED X 1 ON ROOM AIR WITH A SPO2 97%. PATIENT IS NOT COMPLIANT WITH MEDICATIONS, CONFUSED, RESPONDING TO INTERNAL STIMULI, ANXIOUS AT TIMES, EASILY IRRITABLE, COMBATIVE WITH CARE, AND UNCOOPERATIVE. PATIENT DENIES SUICIDAL AND HOMICIDAL IDEATIONS AT THIS TIME. PATIENT ASSISTED WITH TURNING AND REPOSITIONING Q2HR AND PRN FOR COMFORT AND CIRCULATION. PATIENT HAS NO NEEDS AT THIS TIME. PATIENT EDUCATED ON THE USE OF THE CALL CARD. PATIENT BED SIDE RAILS UP X 2 FOR SAFETY. PATIENT BED IS LOCKED, LOW, WITH BED ALARM ON. WILL CONTINUE TO MONITOR THIS PATIENT Q15 MINUTES WITH THE HELP OF STAFF TO MAINTAIN SAFETY.
--- NOTE | 2020-07-31 20:00 | NUR ---
GPS RN NOTE, PATIENT REFUSED TO HAVE VITAL SIGNS TAKEN. OFFERED THREE TIMES AND STILL PATIENT REFUSED STATING, " NO GET AWAY FROM ME, DON'T TOUCH ME ". PATIENT IS ALSO STRIKING OUT AT STAFF TRYING TO SCRATCH US. EDUCATE PATIENT ON THE RISKS AND BENEFITS OF HAVING VITAL SIGNS TAKEN. WILL CONTINUE TO MONITOR THIS PATIENT.
[2020-07-31] MEDS: QUETIAPINE FUMARATE 100 MG TABLET PO SCH ×2 (21:35→21:51)
--- NOTE | 2020-07-31 21:53 | NUR ---
GPS RN NOTE, PATIENT REFUSED DEPAKOTE SPRINKLE 500MG PO HS AND SEROQUEL 100MG PO HS. OFFERED AFOREMENTIONED MEDICATION THREE TIMES AND STILL PATIENT STATING, " NO GET AWAY FROM ME, DON'T TOUCH ME, I DON'T WANT ANYTHING FROM ANYONE ". EDUCATE PATIENT ON THE RISKS AND BENEFITS OF TAKING AND REFUSING DEPAKOTE AND SEROQUEL. WILL CONTINUE TO MONITOR THIS PATIENT.
[2020-08-01 08:00] VITALS: BP 114/68
[2020-08-01] MEDS: NICOTINE PATCH (14MG) 14 MG PATCH.TD24 TD SCH (08:06)
[2020-08-01] MEDS: MEMANTINE HCL 5 MG TABLET PO SCH ×2 (08:07→16:34)
[2020-08-01] MEDS: DIVALPROEX SODIUM 125 MG CAP.SPRINK PO SCH ×2 (08:07→21:05)
[2020-08-01] MEDS: FLUTICASONE/VILANTEROL 1 EACH BLST.W.DEV IH SCH (08:07)
[2020-08-01] MEDS: CITALOPRAM HYDROBROMIDE 20 MG TABLET PO SCH (08:07)
[2020-08-01] MEDS: QUETIAPINE FUMARATE 25 MG TABLET PO SCH (08:07)
[2020-08-01] MEDS: LORAZEPAM 0.5 MG TABLET PO PRN ×2 (09:29→23:35)
[2020-08-01 16:00] VITALS: BP 100/69
[2020-08-01] MEDS: QUETIAPINE FUMARATE 100 MG TABLET PO SCH (16:34)
[2020-08-01 20:28] VITALS: BP 108/72
--- NOTE | 2020-08-01 23:35 | NUR ---
GPS-RN NOTE: ANXIETY PATIENT IS ANXIOUS AND RESTLESS. ADMINISTERED ATIVAN 0.5MG PO ORDERED. WILL CONTINUE TO MONITOR FOR PATIENT'S SAFETY.
--- NOTE | 2020-08-02 08:08 | NUR ---
Discharge Note: Patient will be discharged home [address] [facility] [address]. Patient's Feroz Chauhan ([phone]) was notified and will grain picker the pt via private vehicle at 11AM. Patient denied any suicidal and homicidal ideation as well as auditory and visual hallucinations upon discharge. Patient will follow-up with her hide handler, Dr. Herring, located at [address] [facility], [place] [address]; ([phone]) and will also follow-up with her psychiatrist, Dr. Roosevelt Gutierrez, located at [address] [facility] [address], [facility] [address]; ([phone]). The multidisciplinary exitcare form was done, printed, signed, and given to the patient. Addendum: 08/02/20 at 0826 by SHERICE MANNING Discharge is cancelled due to patient exhibiting aggressive and combative behaviors.
[2020-08-02 08:15] VITALS: BP 105/60
[2020-08-02] MEDS: MEMANTINE HCL 5 MG TABLET PO SCH ×2 (08:22→16:16)
[2020-08-02] MEDS: DIVALPROEX SODIUM 125 MG CAP.SPRINK PO SCH ×2 (08:22→21:18)
[2020-08-02] MEDS: NICOTINE PATCH (14MG) 14 MG PATCH.TD24 TD SCH (08:22)
[2020-08-02] MEDS: CITALOPRAM HYDROBROMIDE 20 MG TABLET PO SCH (08:22)
[2020-08-02] MEDS: QUETIAPINE FUMARATE 100 MG TABLET PO SCH ×2 (08:22→12:23)
[2020-08-02] MEDS: FLUTICASONE/VILANTEROL 1 EACH BLST.W.DEV IH SCH (08:31)
--- NOTE | 2020-08-02 09:00 | NUR ---
RN NOTE- PT EASILY AWAKENED, IRRITABLE, STRIKING OUT AT STAFF. TOOK RX W ICE CREAM THOUGH ATE VERY LITTLE ELSE, REPOSITIONED, RESPONDING TO INTERNAL STIMULUS, +AH
--- NOTE | 2020-08-02 10:00 | NUR ---
RN-CO: SHANNON ALEGIRA, SPOUSE MADE AWARE OF THE CANCELLATION OF THE DISCHARGE TODAY.
[2020-08-02 15:20] VITALS: BP 93/61
[2020-08-02] MEDS: SERTRALINE HCL 25 MG TABLET PO SCH (16:15)
[2020-08-03] MEDS: CITALOPRAM HYDROBROMIDE 20 MG TABLET PO SCH (08:44)
[2020-08-03] MEDS: NICOTINE PATCH (14MG) 14 MG PATCH.TD24 TD SCH (08:44)
[2020-08-03] MEDS: MEMANTINE HCL 5 MG TABLET PO SCH ×2 (08:44→17:04)
[2020-08-03] MEDS: DIVALPROEX SODIUM 125 MG CAP.SPRINK PO SCH ×3 (08:44→21:01)
[2020-08-03] MEDS: FLUTICASONE/VILANTEROL 1 EACH BLST.W.DEV IH SCH (08:44)
[2020-08-03] MEDS: SERTRALINE HCL 25 MG TABLET PO SCH (08:44)
--- NOTE | 2020-08-03 08:45 | NUR ---
RN NOTE- PT VERY COMBATIVE. PUNCHED THIS RN AGAIN. REFUSING CARE ANMD FOOD AND MEDS
--- NOTE | 2020-08-03 09:41 | NUR ---
RN NOTE- PT ATE ICE CREAM AND THIS RN ADMINISTERED DEPAKOTE SPRINKLES
[2020-08-03] MEDS ORDERED: QUETIAPINE FUMARATE 100 MG TABLET PO SCH (10:00)
--- NOTE | 2020-08-03 10:18 | NUR ---
WOUND CARE CONSULT: RECEIVED WOUND CONSULT FOR LEFT PLANTAR FOOT AND RT ELBOW REDNESS. SPOKE WITH RN WHO DENIED NEED FOR WOUND CONSULT AT THIS TIME. PT IS AMBULATORY WITH CURRENT BERTA SCORE OF 20 AND SHE IS VERY COMBATIVE. WILL SEE PRN.
[2020-08-03] MEDS: LORAZEPAM 0.5 MG TABLET PO PRN (13:15)
--- NOTE | 2020-08-03 13:15 | NUR ---
RN NOTE- PT YELLING IRRITABLE STRIKING OUT. ATIVAN 0.5 MG GIVEN
[2020-08-03] MEDS ORDERED: OLANZAPINE 5 MG TABLET PO STA (14:58)
[2020-08-03 16:00] VITALS: BP 112/72
[2020-08-03] MEDS: OLANZAPINE ZYDIS 5 MG TAB.RAPDIS PO SCH (21:05)
[2020-08-03 21:10] VITALS: BP 110/79
[2020-08-04 07:42] VITALS: BP 101/67
[2020-08-04] MEDS: DIVALPROEX SODIUM 125 MG CAP.SPRINK PO SCH ×2 (09:49→21:05)
[2020-08-04] MEDS: MEMANTINE HCL 5 MG TABLET PO SCH ×2 (09:49→16:58)
[2020-08-04] MEDS: NICOTINE PATCH (14MG) 14 MG PATCH.TD24 TD SCH (09:49)
[2020-08-04] MEDS: OLANZAPINE ZYDIS 5 MG TAB.RAPDIS PO SCH ×2 (09:49→21:05)
[2020-08-04] MEDS: FLUTICASONE/VILANTEROL 1 EACH BLST.W.DEV IH SCH (09:58)
[2020-08-04] MEDS: ENSURE ENLIVE 237 ML LIQUID (VANILLA) PO SCH ×3 (10:00→17:00)
[2020-08-04 15:00] LABS: BASOPHILS # (AUTO) 0.1 /CMM (0.0-0.2); BASOPHILS % (AUTO) 1.2 % (0.0-2.0); EOSINOPHILS % (AUTO) 3.3 % (0.0-6.0); HEMATOCRIT 42 % (33-45); HEMOGLOBIN 13.7 g/dL (11.5-14.8); LYMPHOCYTES # (AUTO) 1.7 /CMM (0.8-4.8); MEAN CORPUSCULAR HGB CONC 33 g/dl (31.0-36.0); MEAN CORPUSCULAR VOLUME 93 fL (82-100); MONOCYTES # (AUTO) 0.6 /CMM (0.1-1.30); MONOCYTES % (AUTO) 9.1 % (2.0-12.0); NEUTROPHILS # (AUTO) 3.8 /CMM (1.8-8.9); NEUTROPHILS % (AUTO) 59.4 % (43.0-81.0); PLATELET COUNT (AUTO) 168 /CMM (150-450); RED BLOOD CELL COUNT(AUTO) 4.47 MIL/uL (4.0-5.2); WHITE BLOOD COUNT (AUTO) 6.4 K/uL (4.3-11.0)
[2020-08-04 15:25] LABS: CALCIUM, SERUM 8.9 mg/dL (8.5-10.1); CREATININE 0.9 mg/dL (0.6-1.3); POTASSIUM 3.8 mmol/L (3.5-5.1)
[2020-08-04 18:08] VITALS: BP 111/57
--- NOTE | 2020-08-04 18:30 | NUR ---
RN-CO: DR DAMON Thorne NOTIFIED ABOUT THE Na LEVEL 150, AWAITING TO CALL BACK.
--- NOTE | 2020-08-04 18:51 | NUR ---
RN-CO: Patient is awake, screams and verbally abusive to staff. Combative when we are feeding her and changing her diaper.
--- NOTE | 2020-08-04 19:30 | NUR ---
GPS RN NOTE, RECEIVED PATIENT AWAKE AND IN BED, NO S/S OR COMPLAINTS OF PAIN AT THIS TIME. PATIENT IS DISPLAYING NO S/S OF APPARENT DISTRESS AT THIS TIME. PATIENT BREATHING IS UNLABORED WITH EQUAL RISE AND FALL OF THE CHEST. PATIENT IS ALERT AND ORIENTED X 1 ON ROOM AIR WITH A SPO2 95%. PATIENT IS NOT COMPLIANT WITH MEDICATIONS, CONFUSED, RESPONDING TO INTERNAL STIMULI, ANXIOUS AT TIMES, EASILY IRRITABLE, COMBATIVE WITH CARE, AND UNCOOPERATIVE. PATIENT DENIES SUICIDAL AND HOMICIDAL IDEATIONS AT THIS TIME. PATIENT ASSISTED WITH TURNING AND REPOSITIONING Q2HR AND PRN FOR COMFORT AND CIRCULATION. PATIENT HAS NO NEEDS AT THIS TIME. PATIENT EDUCATED ON THE USE OF THE CALL ACRD. PATIENT BED SIDE RAILS UP X 2 FOR SAFETY. PATIENT BED IS LOCKED, LOW, WITH BED ALARM ON. WILL CONTINUE TO MONITOR THIS PATIENT Q15 MINUTES WITH THE HELP OF STAFF TO MAINTAIN SAFETY.
[2020-08-05 08:00] VITALS: BP 101/60
[2020-08-05] MEDS: OLANZAPINE ZYDIS 5 MG TAB.RAPDIS PO SCH ×2 (08:01→21:55)
[2020-08-05] MEDS: FLUTICASONE/VILANTEROL 1 EACH BLST.W.DEV IH SCH (08:01)
[2020-08-05] MEDS: DIVALPROEX SODIUM 125 MG CAP.SPRINK PO SCH ×2 (08:01→21:55)
[2020-08-05] MEDS: MEMANTINE HCL 5 MG TABLET PO SCH ×2 (08:02→17:10)
[2020-08-05] MEDS: NICOTINE PATCH (14MG) 14 MG PATCH.TD24 TD SCH (08:02)
[2020-08-05] MEDS: ENSURE ENLIVE 237 ML LIQUID (VANILLA) PO SCH ×3 (08:20→17:07)
[2020-08-05] MEDS: LORAZEPAM 0.5 MG TABLET PO PRN ×2 (11:30→17:10)
--- NOTE | 2020-08-05 11:37 | NUR ---
RN-CO: ATIVAN GIVEN FOR AGITATION.
[2020-08-05 16:00] VITALS: BP 116/69
--- NOTE | 2020-08-05 21:53 | NUR ---
GPS RN NOTE, PATIENT REFUSED DEPAKOTE SPRINKLE 500 MG PO HS AND ZYPREXA ZYDIS 7.5 MG PO HS. OFFERED AFOREMENTIONED THREE TIMES AND STILL PATIENT REFUSED STATING, " GOD DAM IT GET AWAY FROM ME ". EDUCATED PATIENT ON THE RISKS AND BENEFITS OF TAKING AND REFUSING DEPAKOTE AND ZYPREXA. WILL CONTINUE TO MONITOR THIS PATIENT WITH THE HELP OF STAFF.
[2020-08-05 23:28] VITALS: BP 90/50
--- NOTE | 2020-08-05 23:28 | NUR ---
GPS RN NOTE, PATIENT VITAL SIGNS ARE FOLLOWS B/P 90/50, TEMP 97.6, RESPIRATIONS 20, PULSE 96 SPO2 97% ON ROOM AIR. PATIENT HAD LAB WORK ON 08/04/20 @1448 BUN 32, AND SODIUM 150. PATIENT IS AGGRESSIVE ATTEMPTING TO HIT STAFF. PATIENT ATTEMPTING TO PULL OUT LINES THAT ARE MEDICALLY NECESSARY FOR TREATMENT. LESS RESTRICTIVE MEASURES ATTEMPTED IE REORIENTATION, REDIRECTION, HIDING TUBES, INCREASED MONITORING, AND COMFORT NEEDS MET. INFORMED ELIZA TOM DNP OF MY FINDINGS. ELIZA TOM DNP GAVE ORDER FOR ACUTE MEDICAL RESTRAINTS AND TO GIVE IV 0.9 % NS 1000ML AT A RATE OF 150ML/HR. NURSING HAT MAKER AND FAMILY INFORMED OF ACUTE MEDICAL RESTRAINTS. ALL ORDERS NOTED AND CARRIED OUT. WILL CONTINUE TO MONITOR THIS PATIENT.
[2020-08-05] MEDS ORDERED: IV NS 0.9% 1,000 ML IV ONE (23:30)
[2020-08-06 04:26] VITALS: BP 121/80
--- NOTE | 2020-08-06 07:38 | NUR ---
GPS RN NOTES PATIENT RECEIVED AWAKE IN BED, AGITATED AND CONFUSED. SHE WAS PLACED ON RECLINER-CHAIR AND POSITION NEAR THE NURSES STATION FOR CLOSE MONITORING.
[2020-08-06] MEDS: ENSURE ENLIVE 237 ML LIQUID (VANILLA) PO SCH ×3 (08:24→17:07)
[2020-08-06] MEDS: NICOTINE PATCH (14MG) 14 MG PATCH.TD24 TD SCH (08:24)
[2020-08-06] MEDS: DIVALPROEX SODIUM 125 MG CAP.SPRINK PO SCH ×2 (08:25→21:22)
[2020-08-06] MEDS: OLANZAPINE ZYDIS 5 MG TAB.RAPDIS PO SCH ×2 (08:25→21:23)
[2020-08-06] MEDS: MEMANTINE HCL 5 MG TABLET PO SCH ×2 (08:25→17:06)
[2020-08-06] MEDS: FLUTICASONE/VILANTEROL 1 EACH BLST.W.DEV IH SCH (08:26)
[2020-08-06 10:04] VITALS: BP 102/59
[2020-08-06] MEDS: LORAZEPAM 0.5 MG TABLET PO PRN (14:19)
--- NOTE | 2020-08-06 14:25 | NUR ---
GPS RN NOTES PT VERY AGITATED AND YELLING ON AND OFF, PRN ATIVAN 0.5 MG P.O. GIVEN AT 1419. WILL CONTINUE TO MONITOR PT.
[2020-08-06] MEDS ORDERED: Z GUARD REMEDY 2 OZ OINT TP PRN (16:00)
[2020-08-06 16:41] VITALS: BP 93/66
[2020-08-06 19:58] VITALS: BP 92/65
--- NOTE | 2020-08-06 21:23 | NUR ---
GPS RN NOTE, PATIENT VITAL SIGNS ARE FOLLOWS B/P 92/65, PULSE 89, TEMP 97.9, RESPIRATIONS 18, AND SPO2 97%. PAGED DR FOX AND INFORMED HIM OF MY FINDINGS. DR FOX ORDERED TO HOLD PATIENT REFUSED DEPAKOTE SPRINKLE 500 MG PO HS AND ZYPREXA ZYDIS 7.5 MG PO HS THIS PM. WILL ENCOURAGE FLUIDS AND I WILL CONTINUE TO MONITOR THIS PATIENT WITH THE HELP OF STAFF.
--- NOTE | 2020-08-06 22:13 | NUR ---
GPS RN NOTE, ASSISTED PATIENT TO BED. ONCE IN BED PATIENT BECAME ANGRY, AGGRESSIVE AND STROKE OUT AT ME WITH HER RIGHT HAND AND MISSED. PATIENT STRUCK THE BED SIDE RAIL AND RECEIVED A SKIN TEAR ON HER POSTERIOR ASPECT OF HER RIGHT HAND. WASHED WITH NORMAL SALINE, APPLIED NON-ADHERENT PAD, AND WRAPPED WITH KERLIX. PICTURE TAKEN OF RIGHT HAND. ELIZA TOM DNP INFORMED OF FINDINGS WITH NEW ORDER FOR WOUND CARE CONSULT. I INFORMED ELIZA MARQUES DNP, NURSING NUT AND BOLT ASSEMBLER, AND SHANNON ALEGRIA ABOUT SKIN TEAR. WILL CONTINUE TO MONITOR THIS PATIENT FOR SAFETY.
[2020-08-07 09:45] VITALS: BP 116/67
[2020-08-07] MEDS: MEMANTINE HCL 5 MG TABLET PO SCH ×2 (10:15→17:01)
[2020-08-07] MEDS: DIVALPROEX SODIUM 125 MG CAP.SPRINK PO SCH ×2 (10:15→22:00)
[2020-08-07] MEDS: NICOTINE PATCH (14MG) 14 MG PATCH.TD24 TD SCH (10:15)
[2020-08-07] MEDS: ENSURE ENLIVE 237 ML LIQUID (VANILLA) PO SCH ×3 (10:15→17:01)
[2020-08-07] MEDS: OLANZAPINE ZYDIS 5 MG TAB.RAPDIS PO SCH ×2 (10:15→22:00)
[2020-08-07] MEDS: FLUTICASONE/VILANTEROL 1 EACH BLST.W.DEV IH SCH (10:18)
[2020-08-07 20:00] VITALS: BP 96/64
[2020-08-07 20:35] VITALS: BP 96/64
--- NOTE | 2020-08-07 22:49 | NUR ---
GPS RN NOTE PATIENT IS EASILY AGITATED, GETS LOUD WHEN REDIRECTED, REFUSED DEPAKOTE & ZYPREXA X 3 SCHEDULED DESPITE OF RISKS & BENEFITS EXPLANATIONS. CONTINUING TO MONITOR CLOSELY FOR ANY CHANGE OF CONDITION.
[2020-08-08 08:00] VITALS: BP 108/69
[2020-08-08 08:05] LABS: BASOPHILS % (AUTO) 0.7 % (0.0-2.0); EOSINOPHILS % (AUTO) 2.8 % (0.0-6.0); HEMATOCRIT 44 % (33-45); HEMOGLOBIN 14.2 g/dL (11.5-14.8); LYMPHOCYTES % (AUTO) 27.6 % (20.0-44.0); MEAN CORPUSCULAR HGB CONC 33 g/dl (31.0-36.0); MEAN CORPUSCULAR VOLUME 93 fL (82-100); MONOCYTES # (AUTO) 0.8 /CMM (0.1-1.30); MONOCYTES % (AUTO) 10.7 % (2.0-12.0); NEUTROPHILS # (AUTO) 4.1 /CMM (1.8-8.9); NEUTROPHILS % (AUTO) 58.2 % (43.0-81.0); PLATELET COUNT (AUTO) 206 /CMM (150-450); RED BLOOD CELL COUNT(AUTO) 4.67 MIL/uL (4.0-5.2); WHITE BLOOD COUNT (AUTO) 7.1 K/uL (4.3-11.0)
[2020-08-08 08:57] LABS: ALBUMIN 3.2 g/dL (3.4-5.0); BILIRUBIN,TOTAL 0.3 mg/dL (0.2-1.0); CALCIUM, SERUM 9.4 mg/dL (8.5-10.1); CREATININE 0.9 mg/dL (0.6-1.3)
[2020-08-08] MEDS: NICOTINE PATCH (14MG) 14 MG PATCH.TD24 TD SCH (09:50)
[2020-08-08] MEDS: OLANZAPINE ZYDIS 5 MG TAB.RAPDIS PO SCH ×2 (09:50→22:00)
[2020-08-08] MEDS: MEMANTINE HCL 5 MG TABLET PO SCH ×2 (09:50→18:02)
[2020-08-08] MEDS: ENSURE ENLIVE 237 ML LIQUID (VANILLA) PO SCH ×3 (09:50→17:00)
[2020-08-08] MEDS: DIVALPROEX SODIUM 125 MG CAP.SPRINK PO SCH ×2 (09:51→21:11)
[2020-08-08] MEDS: FLUTICASONE/VILANTEROL 1 EACH BLST.W.DEV IH SCH (09:53)
[2020-08-08 16:00] VITALS: BP 104/59
[2020-08-08 20:21] VITALS: BP 99/75
--- NOTE | 2020-08-09 | NUR ---
GPS RN NOTES: UPON WEEKLY SKIN PHOTO DOCUMENTATION/ ASSESSMENT, CARE SUPPORT REPRESENTATIVE NOTICED A SKIN TEAR ON PATIENT LEFT LOWER EXTREMITY BY THE ANKLE AREA- MEASURING 1CM x 2CM.- PHOTOS ON SITE TAKEN, CLEANSED SITE WITH NS, PAT DRIED, AND THEN COVERED WITH 4X4 GAUZE. NURSING ROD BENDING MACHINE OPERATOR NOTIFIED. INCIDENT REPORT COMPLETED. WILL NOTIFY IN THE MORNING. NOTIFIED ELIZA TOM NP. WILL NOTIFY MAI CALDERON IN THE MORNING.
[2020-08-09 08:00] VITALS: BP 114/48
--- NOTE | 2020-08-09 08:49 | NUR ---
Family Contact: SW called the pts , Feroz ([phone]), and informed him that the pt does not have a discharge date as of right now and that as soon as the SW receives one from the MD she will work on the pts discharge and inform the right away.
[2020-08-09] MEDS: OLANZAPINE ZYDIS 5 MG TAB.RAPDIS PO SCH ×2 (08:57→21:02)
[2020-08-09] MEDS: MEMANTINE HCL 5 MG TABLET PO SCH ×2 (08:57→16:30)
[2020-08-09] MEDS: NICOTINE PATCH (14MG) 14 MG PATCH.TD24 TD SCH (08:57)
[2020-08-09] MEDS: DIVALPROEX SODIUM 125 MG CAP.SPRINK PO SCH ×2 (08:57→21:04)
[2020-08-09] MEDS: ENSURE ENLIVE 237 ML LIQUID (VANILLA) PO SCH ×3 (08:58→16:30)
[2020-08-09] MEDS: FLUTICASONE/VILANTEROL 1 EACH BLST.W.DEV IH SCH (08:59)
[2020-08-09 15:57] VITALS: BP 106/65
[2020-08-09 20:29] VITALS: BP 90/58
[2020-08-09 21:10] VITALS: BP 115/47
[2020-08-10 08:00] VITALS: BP 136/69
[2020-08-10] MEDS: DIVALPROEX SODIUM 125 MG CAP.SPRINK PO SCH (08:08)
[2020-08-10] MEDS: ENSURE ENLIVE 237 ML LIQUID (VANILLA) PO SCH (08:08)
[2020-08-10] MEDS: MEMANTINE HCL 5 MG TABLET PO SCH (08:08)
[2020-08-10] MEDS: OLANZAPINE ZYDIS 5 MG TAB.RAPDIS PO SCH (08:08)
[2020-08-10] MEDS: FLUTICASONE/VILANTEROL 1 EACH BLST.W.DEV IH SCH (08:08)
[2020-08-10] MEDS: NICOTINE PATCH (14MG) 14 MG PATCH.TD24 TD SCH (08:09)
--- NOTE | 2020-08-10 09:00 | NUR ---
RN NOTE- PT IRRITABLE HAD A LONG NIGHT W LESS SLEEP HOURS. PO INTAKE FAIR, ASSISTED AND NEEDS ATTENDED CONFUSED TALKING TO SELF
--- NOTE | 2020-08-10 09:00 | NUR ---
Family Contact: SW called the pts , Feroz ([phone]), and informed the pts that the pt will be discharged today and he stated that he would arrive around 12pm to pick her up.
--- NOTE | 2020-08-10 09:12 | NUR ---
Discharge Note: Patient [place] [address] [facility], [facility] [id number]. Patient's Feroz Chauhan ([phone]) was notified and will fruit or nut picker the pt via private vehicle at 12PM. Upon discharge, patient appears to be in a distressed affect and appears mood congruent. Patient denies any suicidal and homicidal ideation as well as auditory and visual hallucinations upon discharge. Patient appears to be oriented x3 (place, self and situation) and agreed to be discharged home with her . Patient presents in a gerichair and appears to be disheveled and ungroomed. Patient will follow-up with her manufacturing cost estimator, Dr. Herring, located at [address] [place] [address]; ([phone]) and will also follow-up with her psychiatrist, Dr. Roosevelt Gutierrez, [place] [address] [address] [facility] [id number], [facility] [address]; ([phone]). The multidisciplinary exit care form was done, printed, signed, and given to the patient. Addendum: 08/10/20 at 0918 by ELOISA HI Pt has an appointment with Dr. Deanna Crocker ([phone]) on 08/23/20 at 3pm. Fax of records was sent to: [phone].
--- NOTE | 2020-08-10 10:03 | NUR ---
WOUND CARE CONSULT: PER MANAGER EPIC, NO NEED FOR WOUND CONSULT. WILL SEE PRN. CURRENT BERTA SCORE IS 19.
--- NOTE | 2020-08-10 12:00 | NUR ---
RN DC NOTE- PT CLEANED UP, SHOWERED, CLOTHING CHANGE AND DC TO CARE OF [facility] AT THIS TIME. PT VS STABLE. PT IS ALERT ORIENTED TO PERSON ONLY, CONFUSED CALM DIRECTABLE. PT BELONGINGS CONSISTING OF CLOTHING RETURNED TO HER. PT REFUSES DRESSING CHANGE AND SKIN CHECK . PT BECAME AGITATED WHEN ATTEMPTING DC SKIN CHECK. REFUSES PNS OR INFLUENZA VACCINES. POST DC CARE AND PRESCRIPTIONS REVIEWED WITH BY THIS RN. VERBALIZED UNDERSTANDING RETURNED. ID [email or web address] REMOVED. ESCORTED OFF UNIT AND SIGNED INTO CARE OF .
--- NOTE | 2020-08-10 12:34 | NUR ---
Home Health Referral: ELOISA referred the pt to [facility] with attn to admissions to the fax number: [phone].
== END 2020-08-10 12:00 | disposition home health service (06) | DRG 885 ==
LOC: ER 15:57 → GPS 18:58
PROVIDERS: ADMIT Psychiatry & Neurology Psychiatry; ATTEND Nurse Practitioner Acute Care
DX: F29 Unspecified psychosis not due to a substance or known physiological condition (principal); B95.2 Enterococcus as the cause of diseases classified elsewhere; F03.91 Unspecified dementia, unspecified severity, with behavioral disturbance; N39.0 Urinary tract infection, site not specified; F41.9 Anxiety disorder, unspecified; F32.9 Major depressive disorder, single episode, unspecified; E03.9 Hypothyroidism, unspecified; Z20.822 Contact with and (suspected) exposure to COVID-19; Z73.6 Limitation of activities due to disability; R79.89 Other specified abnormal findings of blood chemistry; R26.89 Other abnormalities of gait and mobility
CPT/HCPCS: 36415; 80048-TC; 80053-TC; 80061-TC; 80076-TC; 80164-TC; 81001; 82962-TC; 83735-TC; 84443-TC; 85025-TC; 87081-TC; 87086-TC; 87186-TC; 97112-TC; 97116-TC; 97530-TC; C9803; G0480; J7030